=== PATIENT | female | born 1960 | race African-American/Black ===

== ENCOUNTER 2023-08-10 01:52 | Emergency (ER) | payer MEDICAID, OTHER ==
[~2023-08-10] VITALS: Ht 154.9 cm; Wt 54.4 kg
[2023-08-10 01:55] VITALS: BP 127/83; PULSE 55; RESP 18; TEMP 97.7; O2SAT 100
== END 2023-08-10 04:25 | disposition home or self-care (01) ==
LOC: ER 01:52
DX: Z76.0 Encounter for issue of repeat prescription (principal); I10 Essential (primary) hypertension; Z00.00 Encounter for general adult medical examination without abnormal findings; Z86.59 Personal history of other mental and behavioral disorders
CPT/HCPCS: 99283